=== PATIENT | female | born 2000 | race Hispanic/Latino ===

== ENCOUNTER 2021-02-26 15:42 | Emergency (ER) | payer MEDICAID ==
[~2021-02-26] VITALS: Ht 157.5 cm; Wt 82.1 kg
[2021-02-26 16:24] LABS: BASOPHILS % (AUTO) 0.3 % (0.0-5.0); EOSINOPHILS % (AUTO) 0.4 % (0.0-8.0); HEMATOCRIT 35.1 % (36-48); LYMPHOCYTES % (AUTO) 21.7 % (21.0-51.0); MEAN CORPUSCULAR HEMOGLOBIN 31.2 pg (27.0-33.0); MEAN CORPUSCULAR HGB CONC 35.3 g/dL (32.0-36.0); MEAN CORPUSCULAR VOLUME 88.4 fL (80-100); MONOCYTES % (AUTO) 7.4 % (3.0-13.0); NEUTROPHILS % (AUTO) 69.8 % (40.0-77.0); PLATELET COUNT (AUTO) 268 K/uL (130-400); RED BLOOD CELL COUNT(AUTO) 3.97 MIL/uL (4.00-5.50); RED CELL DISTRIBUTION WIDTH 13.2 % (11.0-15.5); WHITE BLOOD COUNT (AUTO) 11.2 K/uL (4.8-10.8)
[2021-02-26 16:31] LABS: CREATININE 0.5 mg/dL (0.5-1.5); POTASSIUM 3.6 mmol/L (3.5-5.1)
[2021-02-26 16:36] LABS: ALBUMIN 2.9 g/dL (3.5-5.0); BILIRUBIN,TOTAL 0.1 mg/dL (0.2-1.0); TOTAL PROTEIN, SERUM 6.9 g/dL (6.0-8.3)
[2021-02-26 17:16] LABS: APPEARANCE,URINE Clear (CLEAR); BILIRUBIN,URINE Negative (NEGATIVE); COLOR,URINE Yellow (YELLOW); GLUCOSE, URINE (UA) Negative (NEGATIVE); KETONES,URINE Negative (NEGATIVE); LEUKOCYTE ESTERASE ,URINE Trace (NEGATIVE); NITRATE,URINE Negative (NEGATIVE); OCCULT BLOOD,URINE Small (NEGATIVE); PROTEIN,URINE Negative (NEGATIVE)
[2021-02-26 17:25] LABS: BACTERIA,URINE Few /HPF (None Seen); MUCUS,URINE Rare LPF (None Seen); SQUAMOUS EPITHELIAL CELL,UR Few /HPF (0-2)
[2021-02-26 17:26] LABS: YEAST,URINE BUDDING Rare /HPF (None Seen)
[2021-02-26] MEDS ORDERED: ACET-66 PO (17:56)
[2021-02-26] MEDS ORDERED: ACETAMINOPHEN 500 MG TABLET PO ONE (18:00)
[2021-02-26 18:21] VITALS: BP 124/64
== END 2021-02-26 18:37 | disposition home or self-care (01) ==
LOC: EDH 15:42
DX: O20.0 Threatened abortion (principal); Z3A.18 18 weeks gestation of pregnancy
CPT/HCPCS: 36415; 76805; 80053; 81001; 84703; 85025; 86850; 86900; 86901

== ENCOUNTER 2021-06-02 12:25 | Observation (INO) | payer MEDICAID ==
[~2021-06-02] VITALS: Ht 157.5 cm; Wt 93.0 kg
[~2021-06-02 12:25] MED LIST: ACET-66 PO
[2021-06-02] MEDS: LACTATED RINGERS 1000ML 1,000 ML IV PRN ×2 (13:30→13:53)
[2021-06-02 13:46] LABS: APPEARANCE,URINE Cloudy (CLEAR); BILIRUBIN,URINE Negative (NEGATIVE); COLOR,URINE Yellow (YELLOW); GLUCOSE, URINE (UA) 500 mg/dL (NEGATIVE); KETONES,URINE Negative (NEGATIVE); LEUKOCYTE ESTERASE ,URINE Moderate (NEGATIVE); NITRATE,URINE Negative (NEGATIVE); OCCULT BLOOD,URINE Negative (NEGATIVE); PH,URINE 6.5 (5.0-8.0); PROTEIN,URINE POS 1+ mg/dL (NEGATIVE)
[2021-06-02 13:53] LABS: AMPHET/METH SCREEN,URINE NEGATIVE (NEGATIVE); BARBITURATE SCREEN, URINE NEGATIVE (NEGATIVE); BENZODIAZEPINES SCREEN,URINE NEGATIVE (NEGATIVE); CANNABINOID SCREEN,URINE NEGATIVE (NEGATIVE); COCAINE SCREEN,URINE NEGATIVE (NEGATIVE); OPIATE SCREEN,URINE NEGATIVE (NEGATIVE); PHENCYCLIDINE SCREEN,URINE NEGATIVE (NEGATIVE)
[2021-06-02 14:10] LABS: BACTERIA,URINE Moderate /HPF (None Seen); CALCIUM OXALATE CRYSTALS,UR Few /LPF (None Seen); RBC,URINE 0-1 /HPF (0-1)
[2021-06-02 15:42] VITALS: BP 118/72
== END 2021-06-02 15:15 | disposition home or self-care (01) ==
LOC: EDH 12:25 → LDH 12:43
PROVIDERS: ADMIT Obstetrics & Gynecology; ATTEND Obstetrics & Gynecology
DX: O42.913 Preterm premature rupture of membranes, unspecified as to length of time between rupture and onset of labor, third trimester (principal); Z3A.32 32 weeks gestation of pregnancy
CPT/HCPCS: 76819; 80305; 81001; 82120; 87088; 96360; 96361; G0378 ×2; J7120

== ENCOUNTER → 2022-07-31 | Outpatient (CLI) | payer MEDICAID ==
[~2022-07-31] MED LIST changes: +GADOTERATE MEGLUMINE 10 MMOL/20 ML VIAL IV ONE; +PREN-196 PO
== END | disposition home or self-care (01) ==
LOC: RAH 14:41
PROVIDERS: ATTEND Internal Medicine
DX: E22.1 Hyperprolactinemia (principal)
CPT/HCPCS: 70553; A9575

== ENCOUNTER 2024-01-29 15:06 | Inpatient (IN) | payer MEDICAID ==
[~2024-01-29] VITALS: Ht 157.5 cm; Wt 104.3 kg
[~2024-01-29 15:06] MED LIST changes: -GADOTERATE MEGLUMINE 10 MMOL/20 ML VIAL IV ONE
[2024-01-29 15:56] LABS: APPEARANCE,URINE CLOUDY (CLEAR); BILIRUBIN,URINE NEGATIVE (NEGATIVE); COLOR,URINE LIGHT-ORANGE (YELLOW); GLUCOSE, URINE (UA) NEGATIVE (NEGATIVE); KETONES,URINE NEGATIVE (NEGATIVE); LEUKOCYTE ESTERASE ,URINE 250 Leu/uL (NEGATIVE); NITRATE,URINE NEGATIVE (NEGATIVE); OCCULT BLOOD,URINE LARGE (NEGATIVE); PROTEIN,URINE 30 mg/dL (NEGATIVE); UROBILINOGEN,URINE 0.2 mg/dL (0.2-1.0)
[2024-01-29 16:02] LABS: ADD UA MICROSCOPIC YES
[2024-01-29 16:04] LABS: BACTERIA,URINE MANY /HPF (None Seen); MUCUS,URINE RARE LPF (None Seen); SQUAMOUS EPITHELIAL CELL,UR MANY /HPF (0-2)
[2024-01-29] MEDS: METOCLOPRAMIDE 10 MG/2 ML VIAL IVP ONE (16:30)
[2024-01-29] MEDS ORDERED: CALDOLOR 800MG+NS 250ML 250 ML IV PRN (16:30)
[2024-01-29 16:55] LABS: HEMATOCRIT 33.6 % (36-48); MEAN CORPUSCULAR HEMOGLOBIN 25.3 pg (27.0-33.0); MEAN CORPUSCULAR HGB CONC 32.1 g/dL (32.0-36.0); MEAN CORPUSCULAR VOLUME 78.7 fL (79-99); RED BLOOD CELL COUNT(AUTO) 4.27 MIL/uL (4.00-5.50); RED CELL DISTRIBUTION WIDTH 13.8 % (11.0-15.5); WHITE BLOOD COUNT (AUTO) 10.5 K/uL (4.8-10.8)
[2024-01-29] MEDS ORDERED: MORPHINE PF 100MG/10ML AMP IV ONE (17:34)
[2024-01-29] MEDS ORDERED: ONDANSETRON 4MG INJ ONE (17:35)
[2024-01-29] MEDS: ceFAZolin SODIUM 1 GM VIAL IVPB PRN (17:39)
[2024-01-29] MEDS: CITRIC ACID/SODIUM CITRATE 30 ML UDCUP PO SCH (17:40)
[2024-01-29] MEDS: LACTATED RINGERS 1000ML 1,000 ML IV PRN (17:41)
[2024-01-29 17:46] LABS: HIV 1&2 ANTIBODY Non-Reactive (Negative); HIV-1 p24 Antigen Non-Reactive (Negative)
[2024-01-29] MEDS: ceFAZolin SODIUM 3 GM VIAL IVPB ONE (17:57)
[2024-01-29] MEDS ORDERED: EPINEPHrine PF 1MG (1:1,000) 1 MG/ML AMP ONE (18:00)
[2024-01-29] MEDS ORDERED: proPOFol 10 MG/ML 20ML VIAL IV ONE (18:01)
[2024-01-29] MEDS ORDERED: MIDAZOLAM HCL 1 MG/ML 2ML VIAL ONE (18:05)
[2024-01-29] MEDS: OXYTOCIN-LR 30 UNITS/500ML 500 ML IV SCH (18:48)
[2024-01-29] MEDS ORDERED: 0.9%NACL 10ML VIAL IVP PRN (20:00)
[2024-01-29] MEDS ORDERED: PROMETHAZINE HCL 25 MG/ML 1ML AMPULE IM PRN (20:00)
[2024-01-29] MEDS ORDERED: MEPERIDINE-PF 75 MG/ML SYG IM PRN (20:00)
[2024-01-29 20:43] VITALS: BP 103/65; PULSE 95; RESP 20
[2024-01-29] MEDS ORDERED: DiphenhydrAMINE HCL 50 MG/ML VIAL IV PRN (21:00)
[2024-01-29] MEDS: ONDANSETRON 4MG INJ IVP PRN (21:54)
[2024-01-30] VITALS (7 sets, daily range): BP systolic 102–118; BP diastolic 54–75; PULSE 83–108; RESP 13–20
[2024-01-30] MEDS: DEXTROSE 5 %-0.45 % NACL 1,000 ML IV PRN (00:56)
[2024-01-30] MEDS ORDERED: acetaMINOPHEN 500 MG TABLET PO PRN (01:30)
[2024-01-30] MEDS: CALDOLOR 800MG+NS 250ML 250 ML IV SCH (01:55)
[2024-01-30] MEDS: IBUPROFEN 800 MG TAB PO SCH (01:56)
[2024-01-30 03:47] LABS: RAPID PLASMA REAGIN NONREACTIVE (NONREACTIVE)
[2024-01-30 06:53] LABS: HEMATOCRIT 31.6 % (36-48); MEAN CORPUSCULAR HGB CONC 32.3 g/dL (32.0-36.0); MEAN CORPUSCULAR VOLUME 77.5 fL (79-99); PLATELET COUNT (AUTO) 240 K/uL (130-400); RED BLOOD CELL COUNT(AUTO) 4.08 MIL/uL (4.00-5.50); RED CELL DISTRIBUTION WIDTH 13.5 % (11.0-15.5); WHITE BLOOD COUNT (AUTO) 12.6 K/uL (4.8-10.8)
[2024-01-30] MEDS ORDERED: BisaCODYL 10 MG SUPP.RECT RC PRN (09:00)
[2024-01-30] MEDS: doCUSate SODIUM 100 MG CAP PO SCH (10:40)
[2024-01-30] MEDS: SIMETHICONE 80 MG TAB.CHEW PO PRN (10:40)
[2024-01-30] MEDS: acetaMINOPHEN WITH coDEINE 1 TAB TAB PO PRN (12:38)
[2024-01-30] MEDS ORDERED: DiphenhydrAMINE HCL 25 MG CAPSULE PO PRN (17:00)
[2024-01-30] MEDS: LANOLIN 30GM OINTMENT TP PRN (18:04)
[2024-01-30] MEDS: DIPH,PERTUSS(ACELL),TET VAC/PF 0.5 ML VIAL IM SCH (18:04)
[2024-01-30] MEDS: HYDROcodone/APAP 5/325 1 TAB TABLET PO PRN (20:37)
[2024-01-31 03:43] VITALS: BP 106/69; PULSE 89; RESP 20
[2024-01-31 07:35] VITALS: BP 109/51; PULSE 96; RESP 18
[2024-01-31 11:40] VITALS: BP 114/70; PULSE 95; RESP 18
== END 2024-01-31 12:40 | disposition home or self-care (01) | DRG 540 ==
LOC: EDH 15:06 → LDH 15:07 → OBSVTOIN 15:07 → WSH 21:41
PROVIDERS: ADMIT Obstetrics & Gynecology; ATTEND Obstetrics & Gynecology
PROC: 0UN90ZZ Release Uterus, Open Approach (ICD-10-PCS; 2024-01-29)
PROC: 10D00Z1 Extraction of Products of Conception, Low, Open Approach (ICD-10-PCS; principal; 2024-01-29 17:50)
DX: O99.824 Streptococcus B carrier state complicating childbirth (principal); E66.01 Morbid (severe) obesity due to excess calories; O99.214 Obesity complicating childbirth; O34.211 Maternal care for low transverse scar from previous cesarean delivery; O99.892 Other specified diseases and conditions complicating childbirth; N73.6 Female pelvic peritoneal adhesions (postinfective); Z3A.37 37 weeks gestation of pregnancy; Z37.0 Single live birth
CPT/HCPCS: 36415; 59510; 81001; 85027; 86592; 86701; 86850; 86900; 86901; 87086; 87340; 87390; 88304; 90715; A4344; G0378; J0171; J0690; J1741; J2250; J2274; J2405; J2704; J2765; J7120; A4248; A4649; C1765; J3490

== ENCOUNTER 2024-11-01 04:43 | Emergency (ER) | payer BC, MEDICAID ==
[~2024-11-01] VITALS: Ht 154.9 cm; Wt 80.3 kg
[~2024-11-01 04:43] MED LIST changes: -ACET-66 PO
--- NOTE | 2024-11-01 04:55 | ERN ---
General Chief Complaint: Skin Rash/Abscess Stated Complaint: RASH Time Seen by MD: 04:44 History of Present Illness Initial Comments [age] Female presents for concern for bumps behind her ear. Concern for cancer. They appear to be lymph nodes. No other complaints. Allergies: Coded Allergies: No Known Allergies (Unverified Allergy, Unknown, 02/26/21) Home Meds Reported Medications Vit No.124/Iron/FA ( Vitamin Tablet) 1 Each Tablet, 1 EACH PO DAILY, TAB 07/18/21 Past Medical History Past Medical History: No Pertinent History Past Surgical History: Family History Family History: Negative Social History Social History: Negative Female( History) LMP: October 02, 2024 : 2 Para: 2 Aborts: 0 ROS Dictation CONSTITUTIONAL: No chills, no fever, no weakness, no diaphoresis, no malaise. HEAD/FACE: No signs of trauma. EENT: No eye pain, no blurred vision, no tearing, no double vision, no ear pain, no ear discharge, no nose pain, no nasal congestion, no throat pain, no throat swelling, no mouth pain. RESPIRATORY: No cough, no orthopnea, no SOB, no stridor, no wheezing. CARDIOVASCULAR: No chest pain, no edema, no palpitations, no syncope. GASTROINTESTINAL/ABDOMINAL: No abdominal pain, no constipation, no diarrhea, no nausea, no vomiting. GENITOURINARY: No abnormal discharge, no dysuria, no frequent urination, no hematuria. No complaints of pain in the genitals. MUSCULOSKELETAL: No back pain, no gout, no joint pain, no joint swelling, no muscle pain, no muscle stiffness, no neck pain. INTEGUMENTARY: No change in color, no change in hair/nails, no dryness, no lesion, no lumps, no rash. NEUROLOGICAL/PSYCH: No anxiety, not depressed, no emotional problem, no headache, no numbness, no pre-existing deficit, no history of seizures, no tremors, no weakness. HEMATOLOGIC/LYMPHATIC: Not anemic, no history of blood clots, no apparent bleeding, no bruising, glands not swollen. All Systems Negative, Except as Noted. Physical Exam Physical Exam Dictation VITAL SIGNS: Reviewed. GENERAL APPEARANCE: Alert, oriented x3, no acute distress, obese. HEAD AND FACE: Non-traumatic. EYES: PERRL, pink conjunctivas, eyelid no trauma, anterior chamber clear. EARS: Pinnas intact and no signs of trauma or erythema. Ear canals clear and no discharge. TMs no erythema. NOSE: No discharge, no bleeding. OROPHARYNX: Mouth normal, teeth no caries, tongue pink. Pharynx clear, no erythema. Tonsils no exudates, no abscesses noted. Mucous membrane moist. NECK: Supple, non-tender, no thyromegaly, no masses, no JVD, no bruits. BREAST: Deferred. CHEST: No tenderness, no crepitus, no paradoxical movement, no retractions. LUNGS: Clear, well-ventilated, symmetric, no rales, no wheezing, no rhonchi, no stridor, good breath sounds bilaterally. HEART: Regular rate, regular rhythm, no murmur, no gallops. VASCULAR: No peripheral edema. ABDOMEN: Soft, positive bowel sounds, nondistended, no guarding, nontender, no rebound, no masses no hepatomegaly, no splenomegaly, no Thurman's sign, no hernias. RECTAL: Deferred. GENITAL: Deferred. NEUROLOGICAL: Normal speech, gross motor function intact, gross sensory function intact. MUSCULOSKELETAL: Neck nontender, full range of motion, back nontender, full range of motion. EXTREMITIES: Nontender, full range of motion. SKIN: Color pink, dry, no turgor, no rash, no lacerations, no abrasions, no contusions. LYMPHATICS: Deferred. MDM CC: Bolus in the ER Patient has no comorbidities On clinical exam she has mild lymphadenitis to postauricular auricular lymph nodes. There was no obvious signs of infection. She is nontoxic in appearance No signs of history of cancer, they are mildly tender likely reactive we will DC ED Course Vital Signs Date Time Temp Pulse Resp B/P (MAP) Pulse Ox O2 Delivery O2 Flow Rate FiO2 11/01/24 04:44 97.3 82 16 119/87 99 Room Air DX & DISP Disposition: Discharge Departure Impression: Primary Impression: Acute lymphadenitis of face, head and neck Condition: Stable Additional Instructions: The bumps are your lymph nodes. You have some tenderness to the post auricular, preauricular, parotid, and cervical chain lymph nodes. This often indicates you were immune system is working. This is normal. These will often resolve with time. If you notice these lymph nodes become larger, firm, and did not go away, I recommend follow up with the primary doctor. Referrals: HANNAH LEE MD (PCP) VEDA HERNANDEZ DO November 01, 2024 04:55
[2024-11-01 05:08] VITALS: BP 122/65; PULSE 88; RESP 18; TEMP 98.5; O2SAT 99
== END 2024-11-01 05:18 ==
LOC: EDH 04:43
DX: L04.0 Acute lymphadenitis of face, head and neck (principal)
CPT/HCPCS: 99281